=== PATIENT | female | born 1995 | race Caucasian/White ===

== ENCOUNTER 2020-12-04 09:34 | Emergency (ER) | payer OTHER, SELFPAY ==
[2020-12-04 09:45] VITALS: BP 111/77; PULSE 81; RESP 16; TEMP 36.2; O2SAT 100
== END 2020-12-04 09:50 | disposition left against medical advice (07) ==
PROVIDERS: Emergency Provider Internal Medicine Hematology & Oncology
DX: Z53.21 Procedure and treatment not carried out due to patient leaving prior to being seen by health care provider (principal)
CPT/HCPCS: 99199

== ENCOUNTER 2020-12-11 14:46 | Emergency (ER) | payer OTHER, SELFPAY ==
--- NOTE | 2020-12-11 14:49 | ED_ITS ---
HPI - Overdose General Chief Complaint: Overdose Stated Complaint: UNSPECIFIED Time Seen by Provider: 12/11/20 14:46 Source: patient and RN notes reviewed Mode of arrival: ambulatory Limitations: no limitations History of Present Illness HPI Narrative: 25-year-old female presents with concern for an intentional overdose. Reports 45 minutes prior to arrival she took approximately 10 Tylenol PM's. Reports this was in an attempt to commit suicide. Her significant other reports that she told him about the overdose and he brought her straight here. complaint: intentional overdose Related Data Home Medications Medication Instructions Recorded Confirmed No Home Medications 12/04/20 12/04/20 Allergies Allergy/AdvReac Type Severity Reaction Status Date / Time No Known Allergies Allergy Unverified 12/04/20 09:56 Review of Systems Review of Systems: ROS unobtainable: Yes unobtainable due to medical condition [facility] Past Medical History Medical History (Updated 12/11/20 @ 14:55 by Paty Giron NP) Patient denies significant medical history Social History Social History Gender identity (if verbalized by the patient): Female Comments Unobtainable due to medical condition Exam Narrative: GENERAL: Ill-appearing, slurred speech HEAD: Normocephalic EYES: Right pupil 6 mm, left pupil 5 mm with slow reaction, sclera clear. ENT: Nares clear. Mucous membranes moist. NECK: Supple. CHEST: No respiratory distress. Speaks in full sentences. HEART: Fast rate. Normal peripheral pulses. SKIN: Warm, dry NEURO: Alert and oriented x3. PSYCH: Flat affect Course Course Emergency Course: Patient is aware of, understands and agrees to be seen in the emergency department. Portions of this record may have been created with voice recognition software Vital Signs Vital signs: Reviewed. Transfer Transfered to: [place] Transportation: ALS Transfer rationale: Intentional overdose MDM - Overdose MDM Narrative Medical decision making narrative: Patient's exam and history of intentional o verdose warrants further evaluation emergency department. Patient sent to [place] via EMS. Critical Care Time Critical Care Time Critical Care Time: Yes Total Critical Care Time: 15 Discharge Plan Discharge Clinical Impression: Intentional acetaminophen overdose Qualifiers: Encounter type: initial encounter Qualified Code(s): T39.1X2A - Poisoning by 4- Aminophenol derivatives, intentional self-harm, initial encounter Patient Disposition: Acute Care Hospital Condition: Stable Prescriptions: No Action No Home Medications RF: 0 Follow-up/Referrals: UNKNOWN,DOCTOR [Primary Care Provider] - Time of Disposition: 14:56
[2020-12-11 14:51] VITALS: RESP 16
[2020-12-11 15:00] VITALS: BP 112/96; PULSE 103; RESP 16; TEMP 37.3; O2SAT 100
== END 2020-12-11 14:49 | disposition short-term general hospital (02) ==
PROVIDERS: Emergency Provider Nurse Practitioner
DX: T39.1X2A Poisoning by 4-Aminophenol derivatives, intentional self-harm, initial encounter (principal)
CPT/HCPCS: 99215; G0463

== ENCOUNTER 2020-12-11 15:46 | Inpatient (IN) | payer OTHER, SELFPAY ==
[2020-12-11 15:16] VITALS: BP 110/73; PULSE 88; RESP 20; TEMP 36.9; O2SAT 100
--- NOTE | 2020-12-11 15:29 | ECG_ITS ---
Measurements Intervals [place] Rate: 87 P: 68 TN: 143 QRS: 19 QRSD: 111 T: 64 QT: 374 QTc: 452 Interpretive Statements SINUS RHYTHM INCOMPLETE RIGHT BUNDLE BRANCH BLOCK BORDERLINE ECG Electronically Signed On 12-11-2020 19:26:18 CDT by Kiran Hollins D.O.
--- NOTE | 2020-12-11 15:37 | ED.OVERDOSE ---
HPI - Overdose General Chief Complaint: Overdose Stated Complaint: TYLENOL OD/ SI Source: patient and EMS Mode of arrival: EMS Limitations: no limitations History of Present Illness HPI Narrative: Patient is a 25-year-old female brought in by EMS due to acetaminophen overdose. Patient states that she took 10 Tylenol PMs approximately 30 minutes prior to arrival. Patient also states that she took 2 of her Klonopin. Patient states that she took it to get attention. Patient denies any homicidal ideation. Related Data Home Medications Medication Instructions Recorded Confirmed No Home Medications 12/04/20 12/04/20 Allergies Allergy/AdvReac Type Severity Reaction Status Date / Time No Known Allergies Allergy Verified 12/11/20 15:35 Review of Systems Review of Systems: All systems reviewed & are unremarkable except as noted in HPI and below Constitutional: Constitutional: Denies body ache(s), Denies chills, Denies excessive sweating, Denies fatigue, Denies fever(s), Denies headache(s), Denies malaise, Denies weakness and Denies weight loss Eyes: Eyes: Denies blurry vision, Denies change in vision and Denies loss of vision ENT: Denies dizziness, Denies ear discharge, Denies headache(s), Denies lip swelling, Denies epistaxis, Denies nasal congestion, Denies neck pain, Denies throat swelling and Denies tongue swelling Cardiovascular: Cardiovascular: Denies chest pain, Denies chest pain at rest, Denies chest pain with activity, Denies diaphoresis, Denies rapid heart rate, Denies edema, Denies irregular heart rhythm, Denies lightheadedness, Denies palpitations, Denies dyspnea and Denies dyspnea on exertion Respiratory: Respiratory: Denies chest congestion, Denies cough, Denies hemoptysis, Denies dyspnea and Denies dyspnea on exertion Gastrointestinal: Gastrointestinal: Denies abdominal pain, Denies melena, Denies hematochezia, Denies diarrhea, Denies nausea, Denies vomiting and Denies hematemesis Musculoskeletal: Musculoskeletal: Denies abnormal gait, Denies deformity, Denies joint swelling, Denies limited range of motion, Denies neck pain and Denies numbness Neurologic: Denies Abnormal speech present, Denies abnormal gait, Denies confusion, Denies dizziness, Denies headache(s), Denies focal weakness, Denies loss of vision, Denies numbness, Denies Other visual disturbances, Denies Sensory deficit (Neuro) and Denies weakness Psychiatric: Psychiatric: Denies confusion, Denies auditory hallucinations and Denies homicidal ideation Endocrine: Endocrine: Denies cold intolerance, Denies excessive sweating, Denies fatigue, Denies heat intolerance and Denies palpitations Hematologic/Lymphatic: Hematologic/Lymphatic: Denies easy bleeding and Denies easy bruising Allergic/Immunologic: Allergic/Immunologic: Denies lip swelling, Denies throat swelling and Denies tongue swelling PMFSH Past Medical History Medical History (Updated 12/11/20 @ 18:11 by Raymond Niño MD) Patient denies significant medical history Social History Social History Gender identity (if verbalized by the patient): Female Comments Past medical history: Hepatitis C, anxiety Family history: Unknown Social history: Positive for smoker, no EtOH use, occasional marijuana use Exam Const: General: cooperative, healthy appearing, comfortable, no acute distress and well developed; No confusion Orientation/consciousness: oriented to person, oriented to place, oriented to time, patient oriented x3 and No confusion Limitations: no limitations Other: Somnolent HENMT: Head: normal to inspection, normocephalic and atraumatic Ears: hearing grossly normal bilaterally, TM normal on the right and TM normal on the left General nose exam: Normal external nose present, Normal nares present and No nasal discharge present Face and sinus: normal facial exam Mouth: Yes Normal oral and palatal mucosa present, Yes lip n
[2020-12-11 15:45] VITALS: RESP 14
[2020-12-11 16:00] LABS: Basophils Percent Auto 0.4 % (0.2-1.2); Eosinophils Percent Auto 0.4 % (0-4.4); Hematocrit 40.7 % (37.0-47.0); Hemoglobin 13.7 g/dL (12.0-15.0); Immature Granulocyte Absolute 0.02 K/mm3 (0.00-0.031); Immature Granulocyte Percent A 0.2 % (0-0.5); Lymphocytes Absolute Auto 2.49 K/mm3 (0.9-3.2); Lymphocytes Percent Auto 30.7 % (18.3-44.2); Mean Corpuscular HGB Conc 33.7 g/dl (32-36); Mean Corpuscular Hemoglobin 32.3 pg (26-34); Mean Platelet Volume 9.9 fl (7.4-10.4); Monocytes Absolute Auto 0.6 K/mm3 (0.1-0.6); Monocytes Percent Auto 6.8 % (2.6-8.5); Neutrophils Percent Auto 61.5 % (45.5-73.1); Platelet Count Result 216 k/mm3 (150-375); Red Blood Count 4.24 M/mm3 (4.2-5.4); Red Cell Distribution Width 12.3 % (11.5-14.5); White Blood Count 8.1 K/mm3 (4.5-10.0)
[2020-12-11 16:10] LABS: Partial Thromboplastin Time 29.2 SECONDS (22.3-36.8); Prothrombin Time 13.2 Seconds (11.1-14.7)
[2020-12-11 16:11] LABS: Acetaminophen 68 ug/mL (10-30); Ethanol < 10 mg/dL (<10); Salicylate < 1.0 mg/dL (2-20)
[2020-12-11 16:12] LABS: Alanine Aminotransferase 30 U/L (4-35); Albumin Level 4.3 g/dL (3.5-5.1); Alkaline Phosphatase 70 U/L (38-126); Anion Gap 7 mmol/L (8-16); Aspartate Amino Transferase 27 U/L (14-36); Bilirubin,Total 0.3 mg/dL (0.2-1.3); Blood Urea Nitrogen 9 mg/dL (7-17); Calcium 9.2 mg/dL (8.4-10.2); Carbon Dioxide 29 mmol/L (22-30); Chloride 105 mmol/L (98-107); Estimated CRCL calculation 109 ml/min; Estimated Glomerular Filt Rate > 60; Glucose 102 mg/dL (65-110); Potassium 3.6 mmol/L (3.4-5.0); Sodium 141 mmol/L (137-145)
--- NOTE | 2020-12-11 16:26 | PC.NURSE ---
Pt is agitated. Security is present. Refusing to take activated charcoal at this time. Yelling that she wants to leave.
--- NOTE | 2020-12-11 16:30 | PC.NURSE ---
Pt has throw activated charcoal in sink. Still refusing to drink after extensive explanation of the risks of refusing. Pt still refusing. Unable to redirect.
[2020-12-11] MEDS: HALOPERIDOL LACTATE 5 MG/ML VIAL 10 MG IM (16:35)
[2020-12-11] MEDS: diphenhydrAMINE HCl INJ 50 MG/ML VIAL 25 MG IM (16:35)
[2020-12-11] MEDS: LORazepam INJ (*CRX) 2 MG/ML VIAL IM (16:35)
[2020-12-11 16:48] LABS: Amphetamine Screen Urine Positive (Negative); Barbiturate Screen Urine Negative (Negative); Benzodiazepines Screen Urine Negative (Negative); Cannabinoid Screen Urine Positive (Negative); Cocaine Screen Urine Negative (Negative); Methadone Screen Urine Negative (Negative); Opiate Screen Urine Negative (Negative); Phencyclidine Screen Urine Negative (Negative)
--- NOTE | 2020-12-11 17:05 | PC.NURSE ---
this tech called Silviano BOJORQUEZ due to patient and patient boyfriend causing disturbance. ordered by Yolie Romano, hot car charger
--- NOTE | 2020-12-11 17:31 | PC.NURSE ---
Pt drank one sip of activated charcoal. Refusing to drink the rest at this time
--- NOTE | 2020-12-11 18:05 | PC.NURSE ---
CALL TO POISON CONTROL. 4 HR LEVEL TO BE DRAWN AT 1950. CHECK LFT'S. NO CHARCOAL DUE TO CHANCE OF SEIZURES AND BEING SEDATED. EKG AND ON MONITOR.
[2020-12-11 18:43] LABS: Acetaminophen 29 ug/mL (10-30)
--- NOTE | 2020-12-11 19:07 | PM.IMHP ---
H&P: HPI History of Present Illness Date/Time: 12/11/20 19:07 this is a 25-year-old female who was brought into the emergency room due to a Tylenol overdose. The patient stated that she took 10 Tylenol p.m. approximately 30 minutes prior to arrival. She also took 2 of her Klonopin as well. The patient told ER provider that she was not having any suicidal or homicidal thoughts at the time. The patient explained to them that she was just doing this her attention. The patient's initial Tylenol level was 68 and then it came down to 29 she was positive for amphetamines and positive for cannabis. Charcot had been ordered for the patient however she refused to take it. It is not known at this time if poison Control has been notified. The patient became aggressive in the emergency room and was given Haldol, Ativan, and Benadryl. Acetylcysteine was ordered for the patient. When I went to see the patient in the emergency room she was in 4 point restraints and had been sedated. Patient is being admitted to inpatient services on the date of service of 12/11/2020. Chief Complaint: Tylenol overdose Review of Systems Review of Systems: ROS unobtainable: Yes unobtainable due to mental status (The patient had been sedated in the emergency room.) [facility] Past Medical History Medical History (Updated 12/11/20 @ 19:14 by Jacinta English NP) Anxiety disorder Patient denies significant medical history Polysubstance abuse Tobacco abuse Surgical History Surgical History (Updated 12/11/20 @ 19:14 by Jacinta English NP) No pertinent past surgical history Family History Family History (Updated 12/11/20 @ 19:14 by Jacinta English NP) Unknown Unknown family medical history Social History Social History (Updated 12/11/20 @ 19:15 by Jacinta English NP) Social History: The patient had a significant other in the emergency room earlier. From her old records the patient was reported to use tobacco products. The patient is listed as a full code. The patient was found to be positive for amphetamines and cannabis. Gender identity (if verbalized by the patient): Female Meds Home Medications and Allergies Home Medications Medication Instructions Recorded Confirmed Type No Home Medications 12/04/20 12/04/20 History Allergies Allergy/AdvReac Type Severity Reaction Status Date / Time No Known Allergies Allergy Verified 12/11/20 15:35 Vital Signs Vital Signs - 24 hr 12/11/20 15:16 Temperature 36.9 C Pulse Rate 88 Respiratory Rate 20 Blood Pressure 110/73 Pulse Oximetry 100 Exam Const: General: comfortable, well developed and patient obtunded (Sedated with Haldol) Nutritional Appearance: average body habitus and well nourished Limitations: other limitations (Sedated with Haldol and Benadryl) HENMT: Head: normal to inspection, No palpable skull fracture present and normocephalic Ears: external ears normal General nose exam: Normal external nose present and Normal nares present Eyes: General: appearance normal, both eyes and all related structures Alignment and Position: alignment normal Periorbital: periorbital findings normal Eyelids: eyelids normal Neck: Neck: normal visual inspection Chest: Chest palpation & inspection: normal inspection of the chest Resp: Effort & Inspection: normal respiratory effort Auscultation: clear to auscultation bilaterally Percussion: percussion normal Cardio: Palpation: normal PMI Rate: regular rate Rhythm: regular rhythm Heart sounds: S1 normal heart sound present and S2 normal heart sound present Peripheral pulses: Peripheral pulses 2+ throughout GI: Inspection: normal to inspection Percussion: Yes normal to percussion Auscultation: normal bowel sounds Rectal Exam: deferred Skin: General skin exam: normal color Lesions: no lesions Rashes: no rashes Trauma: no lacerations or abrasions Wounds: no wounds Hair: normal Nails: normal Extrem: General: normal
--- NOTE | 2020-12-11 19:13 | PC.NURSE ---
Left leg restraint removed. Will observe and attempt to remove further restraints.
[2020-12-11 19:17] VITALS: BP 107/71; PULSE 79; O2SAT 99
--- NOTE | 2020-12-11 19:25 | PC.NURSE ---
Pt evaluated by Dr Niño. JEISON to remove all restraints at this time. director of labor and delivery and security present
--- NOTE | 2020-12-11 20:06 | PC.NURSE ---
Patient's boyfriend, Davi, has patient's cell phone and requested to calll him at [phone]
[2020-12-11 20:30] VITALS: BP 102/56; PULSE 71; PULSE 78; RESP 14; TEMP 36.1; O2SAT 100; BMI 27.7
--- NOTE | 2020-12-11 20:30 | ADMGEN ---
This patient, Melissa Pastor, was admitted to Intensive Care Unit-1. Patient/family oriented to hospital policies and general routines including ID bracelet, bed and alarms, visiting hours, pain management, procedures, bathroom and other care routines, personal items, smoking policy, room service/diet, and visiting hours. Information on how to activate the Rapid Response Team has been discussed. Patient/Family are encouraged to report perceived risks to care and to ask questions if they do not understand what they are told or what they should do.
[2020-12-11 22:00] VITALS: BP 129/60; PULSE 78; PULSE 88; RESP 16; O2SAT 100
[2020-12-11 22:46] LABS: Acetaminophen < 10 ug/mL (10-30)
[2020-12-11] MEDS: ACETYLCYSTEINE IVPB (23:16)
[2020-12-11] MEDS: DEXTROSE 5% IVPB (23:16)
[2020-12-11] MEDS: WATER IVPB (23:16)
[2020-12-11 23:18] VITALS: BP 93/60; PULSE 65; RESP 13; TEMP 36.1; O2SAT 100
[2020-12-12] VITALS (13 sets, daily range): BP systolic 86–111; BP diastolic 50–84; PULSE 63–80; RESP 10–18; TEMP 36.2–36.7; O2SAT 97–100
--- NOTE | 2020-12-12 10:40 | WPDCNINT ---
Assessment and Plan Assessment and plan (1) Intentional acetaminophen overdose: Qualifiers: Encounter type: initial encounter Qualified Code(s): T39.1X2A - Poisoning by 4-Aminophenol derivatives, intentional self-harm, initial encounter Code(s): T39.1X2A - Poisoning by 4-Aminophenol derivatives, intentional self-harm, initial encounter Status: Acute Assessment and Plan: it appears the patient took 10 tablets of Tylenol p.m. which would come out to total of 5 g she refuse activated charcoal in ER she was started on NAC infusion protocol from ED her LFTs have remained normal and Tylenol level cleared last night around 10:00 p.m. continue NAC infusion recheck hepatic panel and Tylenol level at 5:00 p.m. and if normal, she will complete her 20 our protocol at 6:00 p.m. (2) Suicide attempt by acetaminophen overdose: Code(s): T39.1X2A - Poisoning by 4-Aminophenol derivatives, intentional self-harm, initial encounter Status: Acute Assessment and Plan: not sure the nature of her overdose as patient absolutely denies suicidal ideation or attempt at and she states she was taking to get attention currently she is drowsy and unable to provide meaningful history and appears resistant to answering questions she has a sitter bedside which will be continued. Once patient is off of NAC infusion, will have Psychiatry evaluate patient for further guidance (3) Agitation: Code(s): R45.1 - Restlessness and agitation Status: Acute Assessment and Plan: patient was agitated in the ER and was given Haldol Ativan and Benadryl currently drowsy but not agitated hold further sedatives sitter at bedside monitor Additional Plan SCDs for DVT prophylaxis Skiff Operator Consult Note Consult date: 12/12/20 Time Seen: 08:30 HPI: Melissa Pastor is a 25 year old female was brought into the emergency room yesterday due to to a Tylenol overdose. in ED, patient stated that she took 10 Tylenol p.m. approximately 30 minutes prior to arrival. She also took 2 of her Klonopin as well. The patient told ER provider that she was not having any suicidal or homicidal thoughts at the time. The patient explained to them that she was just doing this to gain attention. The patient's initial 1 hour Tylenol level was 68 and and patient was started on NAC infusion by ED provider. she refused activated charcoal. Her urine drug screen was positive for amphetamines and positive for cannabis. Later in the ER, patient became aggressive and was given Haldol, Ativan, and Benadryl. she was also restrained. she was admitted to ICU for further evaluation management. this morning patient is drowsy and sleeping but easily arousable. she answers 1 question and goes back to sleep. He is very reluctant in providing any meaningful history. she does admit that she took 10 pills of Tylenol p.m.. she did not give me any answer when asked if she was trying to hurt herself by doing this. she admits to smoke marijuana but denied any other drug use although her UDS was positive for amphetamines also. She denies any complaints at this time states she feels fine and wants to be left alone. Limited review of system was obtained patient by asking direct questions which sometimes have to be repeated multiple times for her to answer. Patient denied fever, chest pain, shortness of breath, cough, nausea vomiting, abdominal pain,, diarrhea, headache or constipation. Review of Systems Review of Systems: All systems reviewed & are unremarkable except as noted in HPI and below ( HPI) [facility] Past Medical History Medical History Anxiety disorder Patient denies significant medical history Polysubstance abuse Tobacco abuse Surgical History Surgical History No pertinent past surgical history Family History Family History
--- NOTE | 2020-12-12 11:31 | PM.IMPN ---
Progress Note: A&P Assessment and Plan (1) Intentional acetaminophen overdose: Qualifiers: Encounter type: initial encounter Qualified Code(s): T39.1X2A - Poisoning by 4-Aminophenol derivatives, intentional self-harm, initial encounter Code(s): T39.1X2A - Poisoning by 4-Aminophenol derivatives, intentional self-harm, initial encounter Status: Acute Assessment and Plan: Patient admits to taking 10 tablets of Tylenol PM which would come out to total of 5000mg. Acetaminophen level was 68. She refused the activated charcoal in ER. She was started on NAC from the ED. LFTs were normal. Repeat level trended to 29 and then <10. Repeat level to by drawn later today. Discussed with aircraft shipping checker. (2) Suicide attempt by acetaminophen overdose: Code(s): T39.1X2A - Poisoning by 4-Aminophenol derivatives, intentional self-harm, initial encounter Status: Acute Assessment and Plan: Delroy does not provide a hx at this time but has told other providers that she was not suicidal but this was more of an attention-seeking event. Sitter in the room. Continue suicide precautions. Crisis to evaluate once she is cleared for discharge. (3) Agitation: Code(s): R45.1 - Restlessness and agitation Status: Acute Assessment and Plan: Patient was agitated in the ER and was given Haldol, Ativan and Benadryl. Related to amphetamines? She is remaining calm now. Hopefully she will complete her treatment later today with plans for Crisis to see in the morning for final disposition (4) Polysubstance abuse: Code(s): F19.10 - Other psychoactive substance abuse, uncomplicated Status: Chronic Assessment and Plan: Patient currently not conducive to Education at this time. Will discuss the benefits of abstaining from drug use at a later time. (5) Tobacco abuse: Code(s): Z72.0 - Tobacco use Status: Chronic Assessment and Plan: Patient currently not conducive to Education at this time. Will discuss the benefits of abstaining from tobacco use at a later time. (6) Anxiety disorder: Code(s): F41.9 - Anxiety disorder, unspecified Status: Chronic Assessment and Plan: Mood stable currently. No home medications listed. Continue to monitor. (7) DVT prophylaxis: Code(s): Z29.9 - Encounter for prophylactic measures, unspecified Status: Acute Assessment and Plan: SCDs Subjective Date/time seen: 12/12/20 11:31 Interval history: 25yo female with anxiety, polysubstance and tobacco abuse here for Tylenol overdose. Patient admits to taking 10 Tylenol PM (500mg) 30 minutes prior to arrival. Assuming care. Chart reviewed. Patient wakes up and opens eyes. She answers a few questions but then closes her eyes and refuses to speak any further. As such, no detailed hx could be obtained. She did allow for an exam Exam Narrative: AF 97.2 98/67 64 11 97% ra Gen - NARD Chest - CTA bilaterally, nml RR CV - RRR S1/S2; Tele showing no significant dysrhythmias Abd - Soft, NT/ND, Positive BS Ext - No pedal edema Psych - depressed mood, refuses to answer questions but allows for exam. Skin - Warm and dry Objective Data Vital Signs Vital Signs: Vital Signs - 24 hr 12/11/20 15:16 12/11/20 15:45 12/11/20 19:17 Temperature 98.4 F Pulse Rate 88 79 Respiratory Rate 20 14 Blood Pressure 110/73 107/71 Pulse Oximetry 100 99 12/11/20 20:30 12/11/20 22:00 12/11/20 23:18 Temperature 97 F L 97 F L Pulse Rate 78 78 65 Respiratory Rate 14 16 13 Blood Pressure 102/56 L 129/60 93/60 L Pulse Oximetry 100 100 100 12/12/20 00:00 12/12/20 02:00 12/12/20 04:00 Temperature 97.2 F L Pulse Rate 79 72 76 Respiratory Rate 12 16 Blood Pressure 95/60 L 111/84 Pulse Oximetry 100 97 12/12/20 05:44 12/12/20 08:00 12/12/20 10:00 Temperature Pulse Rate 78 71 64 Respiratory Rate 10 L 11 L Blood Pres
[2020-12-12] MEDS: SODIUM CHLORIDE 0.45% 1,000 ML 100 ML IV CONT ×2 (14:00→19:57)
[2020-12-12 17:14] LABS: Basophils Percent Auto 0.6 % (0.2-1.2); Eosinophils Absolute Auto 0.1 K/mm3 (0-0.3); Eosinophils Percent Auto 1.6 % (0-4.4); Hematocrit 40.4 % (37.0-47.0); Hemoglobin 13.5 g/dL (12.0-15.0); Immature Granulocyte Absolute 0.03 K/mm3 (0.00-0.031); Immature Granulocyte Percent A 0.4 % (0-0.5); Lymphocytes Absolute Auto 1.94 K/mm3 (0.9-3.2); Lymphocytes Percent Auto 28.9 % (18.3-44.2); Mean Corpuscular HGB Conc 33.4 g/dl (32-36); Mean Corpuscular Hemoglobin 31.9 pg (26-34); Mean Corpuscular Volume 95.5 fl (80-100); Mean Platelet Volume 9.8 fl (7.4-10.4); Monocytes Absolute Auto 0.6 K/mm3 (0.1-0.6); Monocytes Percent Auto 8.9 % (2.6-8.5); Neutrophils Percent Auto 59.6 % (45.5-73.1); Platelet Count Result 197 k/mm3 (150-375); Red Blood Count 4.23 M/mm3 (4.2-5.4); Red Cell Distribution Width 12.4 % (11.5-14.5); White Blood Count 6.7 K/mm3 (4.5-10.0)
[2020-12-12 17:20] LABS: Alanine Aminotransferase 27 U/L (4-35); Albumin Level 3.9 g/dL (3.5-5.1); Alkaline Phosphatase 54 U/L (38-126); Anion Gap 4 mmol/L (8-16); Aspartate Amino Transferase 26 U/L (14-36); Bilirubin,Total 0.3 mg/dL (0.2-1.3); Blood Urea Nitrogen 7 mg/dL (7-17); Calcium 8.6 mg/dL (8.4-10.2); Carbon Dioxide 28 mmol/L (22-30); Chloride 105 mmol/L (98-107); Estimated CRCL calculation 121 ml/min; Estimated Glomerular Filt Rate > 60; Glucose 93 mg/dL (65-110); Lactate Dehydrogenase 251 U/L (313-618); Magnesium 1.8 mg/dL (1.6-2.3); Potassium 3.8 mmol/L (3.4-5.0); Sodium 137 mmol/L (137-145)
[2020-12-12 17:23] LABS: Acetaminophen < 10 ug/mL (10-30)
[2020-12-12 17:24] LABS: Lactic Acid Reflex 0.7 mmol/L (0.7-2.1)
--- NOTE | 2020-12-12 18:36 | PC.NURSE ---
183-PATIENT RELEASED FROM POISON CONTROL.
[2020-12-12 18:43] LABS: Thyroid Stimulating Hormone Reflex 0.671 uIU/mL (0.465-4.68)
[2020-12-13] VITALS: BP 93/54; PULSE 63; PULSE 65; RESP 13; TEMP 36.6; O2SAT 99
[2020-12-13 02:00] VITALS: BP 112/67; PULSE 58; RESP 12; O2SAT 99
[2020-12-13 04:00] VITALS: BP 105/67; PULSE 57; PULSE 62; RESP 12; O2SAT 100
[2020-12-13 06:00] VITALS: BP 91/49; PULSE 56; PULSE 57; RESP 14; TEMP 36.6; O2SAT 99
[2020-12-13] MEDS: SODIUM CHLORIDE 0.9% IV 1,000 ML 999 ML IV CONT (07:45)
[2020-12-13 08:00] VITALS: BP 104/52; PULSE 66; RESP 21; TEMP 36.1; O2SAT 98
--- NOTE | 2020-12-13 09:58 | PM.DS ---
DS: Admitting Diagnosis Discharge Date 12/13/20 Admitting Diagnosis Tylenol Overdose DS: Discharge Diagnosis Discharge Diagnosis (1) Intentional acetaminophen overdose: Qualifiers: Encounter type: initial encounter Qualified Code(s): T39.1X2A - Poisoning by 4-Aminophenol derivatives, intentional self-harm, initial encounter Code(s): T39.1X2A - Poisoning by 4-Aminophenol derivatives, intentional self-harm, initial encounter Status: Acute Assessment and Plan: Patient admits to taking 10 tablets of Tylenol PM which would come out to total of 5000mg. Acetaminophen level was 68. She refused the activated charcoal in ER. She was started on NAC from the ED. LFTs were normal. Repeat Acetaminophen level trended to <10. Repeat LFTs remained normal (2) Suicide attempt by acetaminophen overdose: Code(s): T39.1X2A - Poisoning by 4-Aminophenol derivatives, intentional self-harm, initial encounter Status: Acute Assessment and Plan: Patient told other providers that she was not suicidal but this was more of an attention-seeking event. We had a sitter in the room. She was on suicide precautions. Once she was cleared medcially, we had Crisis to evaluate her. A safety contract performed. (3) Agitation: Code(s): R45.1 - Restlessness and agitation Status: Acute Assessment and Plan: Patient was agitated in the ER and was given Haldol, Ativan and Benadryl. Related to amphetamines? She has since remained calm. (4) Polysubstance abuse: Code(s): F19.10 - Other psychoactive substance abuse, uncomplicated Status: Chronic Assessment and Plan: Patient was educated about the benefits of abstaining from drug use. (5) Tobacco abuse: Code(s): Z72.0 - Tobacco use Status: Chronic Assessment and Plan: Patient was educated about the benefits of abstaining from tobacco use. (6) Anxiety disorder: Code(s): F41.9 - Anxiety disorder, unspecified Status: Chronic Assessment and Plan: Mood stable currently. No home medications listed. DS: Summary Hospital Course Reason for hospitalization: 25yo female here for intentional acetaminophen overdose. Please see H&P for details Hospital Course: Please see above for details of hospital course Status at Discharge Cognitive/behavioral status at discharge: stable Time Spent with Patient Time attestation: Total time spent providing and/or coordinating discharge services: 32 minutes Time spent: Greater than 30 minutes Specific discharge activities: Patient Education Exam Narrative: AF 97.0 104/52 66 21 98% ra Gen - NARD Chest - CTA bilaterally, nml RR CV - RRR S1/S2 Abd - Soft, NT/ND, Positive BS Ext - No pedal edema Psych - mood improved. more interactive and answers questions. Skin - Warm and dry DS: Data Data Completed and Pending Labs on day of discharge: Labs from last 24 hours 12/12/20 12/12/20 12/12/20 17:01 17:01 17:01 WBC RBC Hgb Hct MCV MCH MCHC RDW Plt Count MPV Immature Gran % (Auto) Neut % (Auto) Lymph % (Auto) [place] % (Auto) Eos % (Auto) Baso % (Auto) Lymph # (Auto) [place] # (Auto) Eos # (Auto) Baso # (Auto) Abs Immat Gran (auto) Absolute Neuts (auto) Absolute Nucleated RBC Nucleated RBC % Sodium Potassium Chloride Carbon Dioxide Anion Gap BUN Creatinine Estim Creat Clear Calc Estimated GFR Glucose Lactic Acid 0.7 Calcium Magnesium Ferritin 34.10 Total Bilirubin Direct Bilirubin AST ALT Alkaline Phosphatase Lactate Dehydrogenase Total Protein Albumin TSH (Reflex) 0.671 Acetaminophen < 10 L 12/12/20 12/12/20 17:01 17:01 WBC 6.7 RBC 4.23 Hgb 13.5 Hct 40.4 MCV 95.5 MCH 31.9 MCHC 33.4 RDW 12.4 Plt Count 197 MPV 9.8
--- NOTE | 2020-12-13 11:04 | WPDINTPN ---
Progress Note: A&P Assessment and Plan (1) Intentional acetaminophen overdose: Qualifiers: Encounter type: initial encounter Qualified Code(s): T39.1X2A - Poisoning by 4-Aminophenol derivatives, intentional self-harm, initial encounter Code(s): T39.1X2A - Poisoning by 4-Aminophenol derivatives, intentional self-harm, initial encounter Status: Acute Assessment and Plan: it appears the patient took 10 tablets of Tylenol p.m. which would come out to total of 5 g she refuse activated charcoal in ER she was started on NAC infusion protocol from ED, off after the 3rd Tylenol level was normal LFTs remain normal (2) Suicide attempt by acetaminophen overdose: Code(s): T39.1X2A - Poisoning by 4-Aminophenol derivatives, intentional self-harm, initial encounter Status: Acute Assessment and Plan: not sure the nature of her overdose as patient absolutely denies suicidal ideation or attempt at and she states she was taking to get attention currently she is drowsy and unable to provide meaningful history and appears resistant to answering questions she has a sitter bedside which will be continued. Crisis management and care coordination to evaluate the patient as she is medically stable (3) Agitation: Code(s): R45.1 - Restlessness and agitation Status: Acute Assessment and Plan: patient was agitated in the ER and was given Haldol Ativan and Benadryl She is currently cooperative hold further sedatives sitter at bedside monitor Additional Plan SCDs for DVT prophylaxis Code status: Full code Critical care time spent: 31 minutes Subjective Date/time seen: 12/13/20 11:04 Interval history: Reason for consult: Tylenol overdose, polysubstance abuse 25yo female with anxiety, polysubstance and tobacco abuse here for Tylenol overdose. Patient admits to taking 10 Tylenol PM (500mg) 30 minutes prior to arrival. 12/13/2020: Patient seen and examined the ICU, is awake, alert. Hemodynamically stable, afebrile with adequate urine output. Denies any homicidal or suicidal ideation at this time. Patient has been eating and drinking well. Denies any chest pain, shortness of breath, abdominal pain, nausea vomiting. She was asking me about discharge plans Review of Systems Review of Systems: All systems reviewed & are unremarkable except as noted in HPI and below ( HPI) Exam Narrative: General: Pt is alert awake and in NAD Lungs/Chest: Trachea central Clear BS B/L, No crackles or wheezing. Cardiac: RRR. Normal S1 S2. No murmurs Circulation: Pedal pulses are intact and symmetrical. Abdomen: Normal bowel sounds.. Soft. NT. ND. Extremities: No clubbing, cyanosis or edema. Warm : Mac in place Neurologic: Follows commands. Moves all 4 extremities PERRL she is awake, alert, oriented x3 Skin: No Rash Objective Data Vital Signs Vital Signs: Vital Signs - 24 hr 12/12/20 12:00 12/12/20 14:00 12/12/20 16:00 Temperature Pulse Rate 65 64 69 Respiratory Rate 12 12 15 Blood Pressure 107/56 L 107/61 Pulse Oximetry 100 100 12/12/20 18:00 12/12/20 20:00 12/12/20 22:00 Temperature 98.1 F 97.6 F Pulse Rate 63 65 68 Respiratory Rate 11 L 18 12 Blood Pressure 86/50 L 99/63 L Pulse Oximetry 99 99 12/12/20 23:58 12/13/20 00:00 12/13/20 02:00 Temperature 98 F Pulse Rate 65 58 L Respiratory Rate 13 12 Blood Pressure 93/54 L 112/67 Pulse Oximetry 99 99 99 12/13/20 04:00 12/13/20 06:00 12/13/20 08:00 Temperature 98 F 97.0 F L Pulse Rate 62 56 L 66 Respiratory Rate 12 14 21 H Blood Pressure 105/67 91/49 L 104/52 L Pulse Oximetry 100 99 98 Intake/Output Intake/Output: Intake & Output 12/10/20 12/11/20 12/12/20 12/13/20 23:59 23:59 23:59 23:59 Intake Total 261.25 1600 240 Output Total 750 Balance 261.25 1600 -510 Labs Labs: Laboratory Results - last 24 hr 12/12/20 12/12/20 12/12/20 17:01 17:01 17:01 WBC 6.7
== END 2020-12-13 10:10 | disposition home or self-care (01) | DRG 817 ==
LOC: ANHED 18:11 → ANHICU 12-12 14:32
PROVIDERS: Internal Medicine; Nurse Practitioner; Admitting Provider Internal Medicine; Emergency Provider Emergency Medicine; Visit Provider Internal Medicine
DX: T39.1X2A Poisoning by 4-Aminophenol derivatives, intentional self-harm, initial encounter (principal); R45.1 Restlessness and agitation; F19.10 Other psychoactive substance abuse, uncomplicated; F17.210 Nicotine dependence, cigarettes, uncomplicated; F41.9 Anxiety disorder, unspecified
CPT/HCPCS: 36415; 80053; 80307; 82248; 82728; 83605; 83615; 83735; 84443; 85025; 85610; 85730; 93005; 96372; 99285; J0132; J1200; J1630; J2060; J7030; J7060; J7070

== ENCOUNTER 2023-07-31 23:11 | Emergency (ER) | payer OTHER, SELFPAY ==
[2023-07-31 23:19] VITALS: BP 108/74; PULSE 95; RESP 15; TEMP 36.6; O2SAT 100
[2023-07-31] MEDS: hydrOXYzine HCl 50 MG/ML VIAL 25 MG IM (23:38)
--- NOTE | 2023-07-31 23:49 | ED.GENADULT ---
HPI - General Adult General Chief complaint: Unspecified Stated complaint: SOB, anxiety Time Seen by Provider: 07/31/23 23:17 History of Present Illness HPI narrative: Patient 28-year-old female who presents emergency department with chief complaint of feeling anxious after Vivitrol shot patient reports she received Vivitrol shot for methamphetamine use and reports that she started feeling anxious and feels as though she can not get comfortable. Patient denies suicidal or homicidal ideation reports that she feels somewhat short of breath with this and very anxious Related Data Home Medications Medication Instructions Recorded Confirmed No Home Medications 12/04/20 12/12/20 Allergies Allergy/AdvReac Type Severity Reaction Status Date / Time No Known Allergies Allergy Verified 12/11/20 15:35 Review of Systems Review of Systems: A 10 system review of systems was completed on the patient and is negative except for what is stated in the HPI. Nursing and ancillary documentation was reviewed. PMFSH Past Medical History Medical History Anxiety disorder Patient denies significant medical history Polysubstance abuse Tobacco abuse Surgical History Surgical History No pertinent past surgical history Family History Family History Unknown Unknown family medical history Social History Social History Social History: The patient had a significant other in the emergency room earlier. From her old records the patient was reported to use tobacco products. The patient is listed as a full code. The patient was found to be positive for amphetamines and cannabis. Alcohol intake: unknown Substance use type: marijuana and amphetamines Gender identity (if verbalized by the patient): Female Spiritual care concerns: No Exam Narrative: GENERAL: Well-appearing, well-nourished, and in no acute distress. HEAD: Normocephalic, atraumatic. EYES: PERRLA and EOMI. ENT: Nares clear, no rhinorrhea or epistaxis. Mucous membranes moist. NECK: Supple. CHEST: Clear to auscultation. No respiratory distress. HEART: Regular rate and rhythm. No murmur heard. Normal peripheral pulses. ABDOMEN: Soft, nontender, nondistended, normal active bowel sounds. EXTREMITIES: Normal range of motion. No edema. SKIN: Warm, dry, no rash. NEURO: No focal deficits. Alert and oriented x3. Denies suicidal or homicidal ideation PSYCH: Anxious mood and affect. Course Vital Signs Vital signs: Vital Signs Temperature 36.6 C 07/31/23 23:19 Pulse Rate 95 07/31/23 23:19 Respiratory Rate 15 07/31/23 23:19 Blood Pressure 108/74 07/31/23 23:19 Pulse Oximetry 100 07/31/23 23:19 Oxygen Delivery Room Air 07/31/23 23:19 Temperature 36.6 C 07/31/23 23:19 Pulse Rate 95 07/31/23 23:19 Respiratory Rate 07/31/23 23:19 Blood Pressure 108/74 07/31/23 23:19 Pulse Oximetry 100 07/31/23 23:19 Oxygen Delivery Room Air 07/31/23 23:19 Medical Decision Making MDM Narrative Medical decision making narrative: Differential diagnosis includes anxiety, medication reaction, dehydration, electrolyte abnormality Medications for the patient's symptoms were ordered and laboratory studies were ordered. The patient opted to leave against medical advice at that point Vital Signs Vital Signs: Vital Signs Temperature 36.6 C 07/31/23 23:19 Pulse Rate 95 07/31/23 23:19 Respiratory Rate 07/31/23 23:19 Blood Pressure 108/74 07/31/23 23:19 Pulse Oximetry 100 07/31/23 23:19 Oxygen Delivery Room Air 07/31/23 23:19 Temperature 36.6 C 07/31/23 23:19 Pulse Rate 95 07/31/23 23:19 Respiratory Rate 07/31/23 23:19 Blood Pressure 108/74
--- NOTE | 2023-07-31 23:52 | PC.NURSE ---
Pt refused an IV for a NS bolus. Pt did allow this RN to draw blood with a butterfly needle. EDP made aware, no further orders at this time.
--- NOTE | 2023-07-31 23:55 | PC.NURSE ---
Pt eloped from ED out of the ambulance bay.
== END 2023-08-01 00:19 | disposition left against medical advice (07) ==
LOC: ANHED 23:24
PROVIDERS: Emergency Provider Emergency Medicine
DX: F41.9 Anxiety disorder, unspecified (principal); F19.980 Other psychoactive substance use, unspecified with psychoactive substance-induced anxiety disorder; Z72.0 Tobacco use
CPT/HCPCS: 96372; 99283; J3410

== ENCOUNTER 2025-03-16 04:31 | Emergency (ER) | payer OTHER, SELFPAY ==
[2025-03-16 04:38] VITALS: BP 130/83; PULSE 100; RESP 16; TEMP 36.8; O2SAT 100
--- OUTSIDE RECORDS SUMMARY | 2025-03-16 05:36 | XMS_ITS | Patient Health Record ---
Author Organization [facility] Address [address] [place] [address] Phone [phone] Care Team Providers Care Animation Artist Name Role Phone Janet Nance Primary Care Provider [phone] Allergies No Known Allergies Reason For Referral No Information Medications Medication SIG (Take, Route, Frequency, Duration) Notes Start Date End Date Diagnosis (ICD Code) Status buPROPion HCl ER (SR) 150 MG Tablet Extended Release 12 Hour 1 tablet in the morning Orally Once a day; Duration: 30 days 4 MDD (major depressive disorder) (ICD_10 - F32.9) Active Naltrexone HCl 50 MG Tablet 0.5 tablet Orally once 4 Methamphetamine use (ICD_10 - F15.10) Active Naloxone HCl 4 MG/0.1ML Liquid as directed Nasally 4 Methamphetamine use (ICD_10 - F15.10) Active Vivitrol 380 MG Suspension Reconstituted as directed Intramuscular every 28 days 4 Methamphetamine use (ICD_10 - F15.10) Active Social History Tobacco Use: Social History Observation Description Date Details (start date - stop date) Current Smoker NA - NA Sex Observation Social History Observation Description Sex Observation Female Sexual Orientation Social History Observation Description Sexual Orientation Straight or heterose xual Gender Identity Social History Observation Description Gender Identity Female SDOH Assessments Date Tool Assessment Assessment LOINC Value Assessment Notes Goals Interventions 07/29/19 24 PRAPARE (LOINC: 99381-2) Total Score: 1 Date Completed/Upda teagan: 07/29/19 24 What is your current housing situation? 00590-1 I have housing (LA56789-4) Are you worried about losing your housing? 65072-0 No (LA32-8) What is the highest level of school that you have finished? 09900-9 High school diploma or GED (BE31566-3) What is your current work situation? 72740-7 Unemployed and seeking work (LC81688-8) In the past year, have you o r any family members you live with been unable to get any of the following when it was really needed? Check all that apply 66355-1 I do not have problems meeting my needs Has lack of transportation k ept you from medical appointments, meetings, work or from getting things needed for daily living? 30152-7 No (LA32-8) How often do you see or talk to people that you care about and feel close to? (For example: talking to friends on the phone, visiting friends or family, going to gnosticism or club meetings) 39361-7 3 to 5 times a week (TI07751-7) How stressed are you? Stress is when someone feels tense, nervous, anxious, or can\t sleep at night because their mind is troubled 20332-9 A little bit (NZ96179-0) In the past year have you sp ent more than 2 nights in a row in a alf, long-term, jail center, or juvenile correctional facility? 61644-3 No (LA32-8) Do you feel physically and emotionally safe where you currently live? 74861-5 Yes (LA33-6) In the past year, have you b een afraid of your partner or ex-partner? 13593-2 No (LA32-8) Are you a refugee? No What country are you from? [facility] PRAPARE Score: 1 Social History Social Determinants Social Info Question Answer Notes PRAPARE Are you a refugee? No What country are you from? [facility] Date Completed/Updated: 07/29/2023 What is your current housing situation? I have h ousing Are you worried about losing your housing? No What is the highest level of school that you have finished? High school diploma or GED What is your current work situation? Unemployed and seeking work In the past year, have you o r any family members you live with been unable to get any of the following when it was really needed? Check all that apply I do not have problems meeting my needs Has lack of transportation k ept you from medical appointments, meetings, work or from getting things needed for daily living? No How often do you see or talk to people that you care about and feel close to? (For example: talking to friends on the phone, visiting friends or family, going to gnosticism or club meetings) 3 to 5 times a week How stressed are you? Stress is when someone feels tense, nervous, anxious, or can\t sleep at night because their mind is troubled A little bit In the past year have you sp ent more than 2 nights in a row in a alf, long-term, jail center, or juvenile correctional facility? No Do you feel physically and e motionally safe where you currently live? Yes In the past year, have you b een afraid of your partner or ex-partner? No PRAPARE Score: 1 Primary Social History Social Info Question Answer Notes Living Arrangement Living Arrangement: Dependent Montse cartagena Is this a supportive environment? Yes Illicit Substance Usage Illicit Substance Usage: Yes Substance Used: Methamphetamine Frequency Methamphetamine is used: last use 07/25/2023 Interested in quitting: Yes Alcohol Use Alcohol Use Frequency: Never Tobacco Use: Social Info Question Answer Notes Tobacco Control (Standard) Tobacco use: Current smoker How often do you smoke cigarettes? Every day Additional Findings: Tobacco user Light cigarett e smoker (1-9 cigs/day) Problems Problem Type SNOMED Code ICD Code Dates Problem Status W/U Status Risk Notes Problem Tobacco user (197305362) Nicotine dependence, unspecified, uncomplicated (F17.200) Added On:07/25 Active confirmed Problem Major depressive disorder (179880573) MDD (major depressive disorder) (F32.9) Added On:07/25 Onset Date: 07/26/19 24 Active confirmed Problem History of methamphetamine use (84156236492051838 ) Methamphetamine use (F15.10) Added On:07/28 Active confirmed Problem Obesity (758034522) Obesity (BMI 30-39.9) (E66.9) Added On:07/28 Active confirmed Plan Of Treatment No Information Insurance Providers Payer Name Payer Address Payer Phone Subscriber Number Group Number Insured Name Patient Relationship to Insured Coverage Start Date Coverage End Date [employer] [facility] [address] [place] [phone] [id number] Dawit Melissa Self - patient is the insured 4 Medications Administered Medication Instructions Date of Administration Dosage Diagnosis (ICD Code) Notes Vivitrol 07/29/2023 380 mg KING Rehman, Ne June 07/29/2023 03:39:03 PM CDT > pt tolerated the injection well. Medical (General) History Medical History History ICD Code Hepatitis C (2006), did not require dee dee tment Surgical History Surgery Date(Month/Year) section x2
== END 2025-03-16 07:07 | disposition left against medical advice (07) ==
DX: M54.2 Cervicalgia (principal)
CPT/HCPCS: 99199